=== PATIENT | female | born 1945 ===

== ENCOUNTER → 2023-07-10 | Outpatient (REF) | payer BC ==
[2023-07-10 18:52] LABS: PTH INTACT 32.7 PG/ML (18.5-88.0)
[2023-07-21 13:10] LABS: VITAMIN D 1,25 DIHYDROXY 35.2 pg/mL (24.8-81.5)
== END ==
LOC: M LAB REF 17:10
PROVIDERS: ATTEND Internal Medicine Nephrology
DX: E83.52 Hypercalcemia (principal)